=== PATIENT | male | born 1960 | race Caucasian/White ===

== ENCOUNTER → 2016-10-31 | Outpatient (CLI) | payer OTHER ==
[~2016-10-31] MED LIST: ACID CONTROL20 MG PO; ASPIRIN PO; BACTRIM DS TABL1 TAB PO; BP MED; BUMEX PO; CHOL. MED; COREG6.25 MG PO; COUMADIN PO; FAMOTIDINE; MICRO-K PO; PRAVACHOL PO; ULTRAM; VICODIN ES 7.51 EACH PO; WATER PILL; [UNRECOGNIZED DRUG - REMARK]
--- NOTE | ~2016-10-31 | MR18 ---
[facility] A Service of [facility] - [place] RADIOLOGY TEXT RESULTS PATIENT: JONO ROBLERO LOCATION: [facility] : 60 UNIT #: [id number] AGE: [address]: Earl Olguin MD SEX: M ORDER DR: [id number] [id number] MR#: [id number] Acc #: [id number] NAME: JONO ROBLERO : 1960 SEX: M STUDY DATE/TIME: 10/31/2016 10:19 UNIT: [facility] ROOM: STUDY DESCRIPTION: MR Brain Wo Contrast Attending Physician: Earl Olguin M.D. Referring Physician: Earl Olguin M.D. Ordering Physician: Amol Magaña M.D. Primary Care Physician: Amlo Magaña M.D. MRI CENTER REPORT This report is preliminary unless electronic signature is present. EXAM MRI of the brain without contrast dated 10/31/2016 COMPARISON MRI/MRA brain dated 02/19/2009. HISTORY Increase memory loss, dementia for 1-2 years. History of CVA x3. Closed-head injury as a child. TECHNIQUE Multisequence, multiplanar imaging of the brain was obtained without contrast. FINDINGS Motion artifact is noted in multiple sequences involving multiple images. After giving allowances to motion artifact, there is no significant acute intracranial abnormality. No acute stroke, space-occupying intracranial mass, hydrocephalus, or midline shift. Punctate hypointense gradient signal 1 mm foci are noted in the posterior and medial left temporal lobe, superior right cerebellar hemisphere close to the tentorium cerebelli. These do not have core operative signal changes in the other sequences. They could represent punctate calcification or hemosiderin deposition from petechial old hemorrhage. Thick slices through the sella with the pituitary gland, pineal region demonstrates a partially empty level. Mild degenerative changes are in the cervical spine. S-shaped nasal septal deviation is seen. Paranasal sinuses demonstrate minimal bilateral ethmoid sinus mucosal thickening. There is minimal right mastoid and mild left mastoid mucosal thickening. Imaged orbits and the ocular structures do not demonstrate any significant abnormality. IMPRESSION [facility] A Service of [facility] & [facility] [place] RADIOLOGY TEXT RESULTS PATIENT: JONO ROBLERO LOCATION: [facility] : 60 UNIT #: [id number] AGE: [address]: Earl Olguin MD SEX: M ORDER DR: 1. No acute stroke, space-occupying intracranial mass, mass effect, midline shift, or hydrocephalus. 2. Punctate 1 mm hypointense gradient signal foci are noted in the brain as described above, likely related to punctate calcification or old petechial hemosiderin deposition. It is not correlated in the other sequences send it does not have any associated mass or edema. 3. Partially empty sella. 4. Mild degenerative changes in the cervical spine. 5. Mild paranasal sinus and bilateral mastoid mucosal thickening, relatively worse in the left mastoid air cells. S-shaped nasal septal deviation is seen. Dictated by... Betsy Whitaker M.D. THIS IS AN ELECTRONICALLY VERIFIED REPORT Betsy Whitaker M.D. at 11/04/2016 4:12 PM CPR/aa TD: 11/01/2016 11:21 JOB #: [id number] MRI CENTER REPORT Page 1 of 1
== END | disposition home or self-care (01) ==
LOC: SMRI 09:39
DX: I63.40 Cerebral infarction due to embolism of unspecified cerebral artery (principal); R41.3 Other amnesia; R93.0 Abnormal findings on diagnostic imaging of skull and head, not elsewhere classified; M47.892 Other spondylosis, cervical region; J34.89 Other specified disorders of nose and nasal sinuses
CPT/HCPCS: 70551